=== PATIENT | female | born 1990 | race Caucasian/White ===

== ENCOUNTER 2022-06-30 22:33 | Emergency (ER) | payer SELFPAY ==
[~2022-06-30] VITALS: Ht 162.6 cm; Wt 75.7 kg
--- NOTE | 2022-06-30 22:50 | NUR ---
called pt 2x in lobby and outside no response
[2022-06-30 22:52] VITALS: BP 117/81
[2022-06-30 23:28] VITALS: BP 117/74
--- NOTE | 2022-06-30 23:44 | NUR ---
Patient taken to bed 6.
--- NOTE | 2022-06-30 23:49 | NUR ---
PT BIB self s/p fall yesterday around 7pm. pt said she fell overbackwards and landed on her head. pt with c/o of 8/10 pain in the back head, left hip pain, left back pain. 2 episodes of vomiting today. denies pmhx allergic to ibuprofen., amoxicillin, penicillin
--- NOTE | 2022-07-01 01:28 | NUR ---
Dr. Biswas examining patient.
[2022-07-01] MEDS ORDERED: HYDROcodone/APAP 5/325 MG 1 TAB TAB PO ONE (01:35)
[2022-07-01] MEDS ORDERED: ONDANSETRON 4 MG ODT PO ONE (01:35)
--- NOTE | 2022-07-01 02:14 | NUR ---
Patient taken to CT
[2022-07-01] MEDS ORDERED: ACET-8905 PO (03:27)
[2022-07-01] MEDS ORDERED: CYCL-711 PO (03:27)
[2022-07-01 03:37] VITALS: BP 125/72
--- NOTE | 2022-07-01 03:37 | NUR ---
Patient discharged with v/s stable. Written and verbal after care instructions given and explained. Patient alert, oriented and verbalized understanding of instructions. Ambulatory with steady gait. All questions addressed prior to discharge. ID band removed. Patient advised to follow up with PMD. Rx of FLEXERIL AND NORCO 5-325 given. Patient educated on indication of medication including possible reaction and side effects. Opportunity to ask questions provided and answered.
== END 2022-07-01 03:37 | disposition home or self-care (01) ==
LOC: MED 22:33
DX: S39.012A Strain of muscle, fascia and tendon of lower back, initial encounter (principal); S00.93XA Contusion of unspecified part of head, initial encounter; M25.552 Pain in left hip; Z88.0 Allergy status to penicillin; Z88.5 Allergy status to narcotic agent; W18.30XA Fall on same level, unspecified, initial encounter; Y93.89 Activity, other specified; Y92.89 Other specified places as the place of occurrence of the external cause; Y99.8 Other external cause status
CPT/HCPCS: 70450; 72100; 81025; 99284; Q0162